=== PATIENT | male | born 1930 | race Caucasian/White ===

== ENCOUNTER 2017-01-24 09:21 | Emergency (ER) | payer OTHER ==
[2017-01-24 09:33] VITALS: PULSE 60; RESP 18
--- NOTE | 2017-01-24 09:44 | CPEKG ---
Heart Rate: 96 RR Interval: 625 P-R Interval: 184 QRSD Interval: 200 QTC Interval: 0 P [place]: 100 QRS [place]: 116 EKG Severity - ABNORMAL ECG - EKG Impression: ATRIAL-VENTRICULAR DUAL-PACED COMPLEXES EKG Impression: NONSPECIFIC INTRAVENTRICULAR CONDUCTION DELAY EKG Impression: BORDERLINE ST DEPRESSION, ANTEROLATERAL LEADS Electronically Signed By: Bhumika Spencer 24-Jan-2017 11:58:11
--- NOTE | 2017-01-24 09:45 | EDPHY ---
H & P Time Seen by Provider: 01/24/17 09:38 HPI/ROS: CHIEF COMPLAINT: Lightheadedness HISTORY OF PRESENT ILLNESS: This patient is an 86 year old man, with a history of hypertension, CAD, and pacemaker placement, presenting with acute lightheadedness, onset this morning while making coffee. [place] lightheaded, sat down felt somewhat better, but the lightheadedness has persisted. No associated sx, no known agrrevating factors. No fall or syncope. He was in his usual state of health yesterday, admits to drinking plenty of water yesterday and having two glasses of wine yesterday evening. He had two previous similar episodes in the last six months, one of which was secondary to accidentally taking to his 's medications. He occasionally has difficulty taking his correct medications -- currently not taking his magnesium supplement and is taking an Excedrin instead of his usual 81mg aspirin. He has not taken his morning medications this morning. REVIEW OF SYSTEMS: Constitutional: No fever, no chills Eyes: No visual changes ENT: No sore throat Respiratory: No cough, no shortness of breath Cardiac: Lightheadedness, near-syncope. No chest pain Gastrointestinal: No nausea, no vomiting, no abdominal pain Genitourinary: No hematuria, no dysuria Musculoskeletal: No leg pain or swelling Skin: No rash Neurological: No headache, no numbness, no weakness Psychiatric: No depression Past Medical/Surgical History: Hypertension, borderline diabetes, coronary artery disease, complete heart block s/p pacemaker placement Social History: Former smoker, , his son is at bedside Smoking Status: Former smoker Physical Exam: General Appearance: Alert, smiling, pleasant Eyes: Pupils equal and round, no conjunctival pallor or injection ENT, Mouth: Mucous membranes moist Neck: Normal inspection Respiratory: Lungs are clear to auscultation Cardiovascular: Regular rate and rhythm Gastrointestinal: Abdomen is soft and non- tender Neurological: A&O, CN II-XII intact, motor/sensory intact Skin: Warm and dry, no rash Extremities: Nontender, no pedal edema Psychiatric: Mood and affect normal Constitutional: Initial Vital Signs Temperature (C) 36.2 C 01/24/17 09:26 Heart Rate 60 01/24/17 09:26 Respiratory Rate 18 01/24/17 09:26 Blood Pressure 178/85 H 01/24/17 09:26 O2 Sat (%) 97 01/24/17 09:26 O2 Delivery Mode Room Air Allergies/Adverse Reactions: No Known Allergies Allergy (Verified 01/24/17 09:25) Home Medications: Medication Instructions Recorded *Waiting For Son To Call Back To 07/19/15 Complete Med Rec Aspirin [Aspirin 81mg (OTC)] 81 mg PO DAILY #30 tab 07/19/15 Clonidine HCl 0.1 mg PO DAILY #0 tablet 07/19/15 Fluvastatin Sodium 20 mg PO DAILY #30 capsule 07/19/15 amLODIPine BESYLATE [Norvasc] 10 mg PO DAILY #30 tab 07/19/15 Plavix 01/24/17 Medical Decision Making - Diagnostics EKG Interpretation: EKG interpreted by me reveals an AV paced rhythm, rate 96. ED Course/Re-evaluation: Patient presents with lightheadedness, onset this morning. History is significant for CAD, HTN, and complete heart block s/p pacemaker placement. An IV has been established. [facility] has been called to interrogate pacemaker. 1140: Pacemaker was interrogated, device functioning normally. No pauses or arrhythmia. Patient is now asymptomatic. He will ambulate in the ED. 1200: Patient was ambulated. Feels a little off, but improved overall. Unable to describe further. HR and BP are normal when ambulating. 1210: I offered patient food/fluids, since he hasn't eaten yet today, and continued observation. However, on re-evaluation, he tells me that he feels better and wants to go home to eat breakfast with his son. I advised the patient to follow up with his PCP this week. Differential Diagnosis: includes though not limited to dysrhythmia, ACS, dehydration, hypoglycemia, CVA/ TIA, vertigo - Data Points Laboratory Results: Laboratory Results 01/24/17 09:50 01/24/17 09:50 Medications Given: Discontinued Medications Sodium Chloride (Ns) 1,000 mls @ 0 mls/hr IV ONCE ONE PRN Reason: Wide Open Stop: 01/24/17 09:52 Last Admin: 01/24/17 10:07 Dose: 1,000 mls Departure - Departure Disposition: Home, Routine, Self-Care Clinical Impression: Lightheadedness Condition: Good Instructions: Lightheadedness (ED) Additional Instructions: Follow up with Dr. Barnard this week. Return to the Emergency Department for fever, chest pain, shortness of breath, syncope, or other worsening of condition. Referrals: Gus Barnard [Primary Care Provider] - As per Instructions Report Scribed for: Bhumika Spencer Report Scribed by: Katja Jorgensen Date of Report: 01/24/17 Time of Report: 09:41 Physician Review and Approval Statement: 01/24/17 09:41 Portions of this note were transcribed by a medical doctor nuclear medicine. I personally performed a history, physical exam, medical decision making, and confirmed accuracy of information the transcribed note.
[2017-01-24] MEDS ORDERED: NS 1,000 ML IV ONE (09:51)
[2017-01-24 09:58] VITALS: TEMP 97.2
[2017-01-24 10:01] LABS: % IMMATURE GRANULYOCYTES 0.6 % (0.0-1.1); ABSOLUTE IMMATURE GRANULOCYTES 0.05 10^3/uL (0.00-0.10); ADD DIFF? NO; ADD MORPH? NO; ADD SCAN? NO; ATYPICAL LYMPHOCYTE FLAG 0 (0-99); FRAGMENT RBC FLAG 0 (0-99); HEMATOCRIT 45.7 % (40.0-51.0); HEMOGLOBIN 15.3 g/dL (13.7-17.5); LEFT SHIFT FLG 0 (0-99); LIPEMIA HEMOLYSIS FLAG 80 (0-99); MEAN CELL HEMOGLOBIN 31.6 pg (27.9-34.1); MEAN CELL HEMOGLOBIN CONCENTR. 33.5 g/dL (32.4-36.7); MEAN CELL VOLUME 94.4 fL (81.5-99.8); PLATELET CLUMPS FLAG 20 (0-99); PLATELET COUNT 288 10^3/uL (150-400); RED BLOOD CELL COUNT 4.84 10^6/uL (4.40-6.38); RED CELL DISTRIBUTION WIDTH 12.4 % (11.5-15.2)
[2017-01-24 10:14] LABS: ANION GAP 14 mEq/L (8-16); CALCIUM 9.2 mg/dL (8.5-10.4); CARBON DIOXIDE 21 mEq/l (22-31); CHLORIDE 102 mEq/L (97-110); CREATININE 0.8 mg/dL (0.7-1.3); GLOMERULAR FILTRATION RATE > 60; GLUCOSE 133 mg/dL (70-100); POTASSIUM 4.4 mEq/L (3.5-5.2); SODIUM 137 mEq/L (134-144)
[2017-01-24 10:26] LABS: TROPONIN I < 0.012 ng/mL (0-0.034)
[2017-01-24 12:02] VITALS: BP 151/77
[2017-01-24 12:03] VITALS: O2SAT 95
== END 2017-01-24 12:14 | disposition home or self-care (01) ==
DX: R42 Dizziness and giddiness (principal); I10 Essential (primary) hypertension; I25.10 Atherosclerotic heart disease of native coronary artery without angina pectoris; Z95.0 Presence of cardiac pacemaker; Z87.891 Personal history of nicotine dependence; Z79.82 Long term (current) use of aspirin

== ENCOUNTER 2018-07-15 20:17 | Inpatient (IN) | payer OTHER, MEDICARE ==
--- NOTE | 2018-07-15 22:08 | EDPHY ---
HPI/HX/ROS/PE/MDM Narrative: CHIEF COMPLAINT: Right eye vision problem HISTORY OF PRESENT ILLNESS: The patient is an anticoagulated (Plavix) 87 y/o male with a history of an DE, CABG, pacemaker, and hypotension complaining of right eye vision problems. The patient was getting out of his car to play golf when his right eye developed a black line that obscured the bottom half of his vision. He denies chest pain, shortness of breath, dizziness or lightheadedness. However, the last several times he was golfing he did feel dizzy and unstable, but he did not experience this today. Because of this dizziness his called the pacemaker patient registration representative 2 weeks ago who did not see any abnormalities with the patient's pacemaker. At it's worst, his vision was 40% obscured. The patient played golf and his vision continued to improve for the next 4 hours. After golfing, he called his cementer oil well and was advised to follow up with a retinal specialist. He saw Dr. No who determined that a blood clot had passed through his right retina. She thought this was a piece of a larger blood clot. The patient left Dr. No's office at 17:00, 5 hours ago; at this time the vision problem had resolved. After returning home he called his pig sticker who advised the patient to present to the emergency department. He denies numbness or tingling in his arms, legs or face, weakness, speech difficulties. Denies history of DVT, PE, atrial fibrillation. No fever, chills, chest pain, shortness of breath, palpitations, vomiting, diarrhea, urinary complaints, headache, lightheadedness. REVIEW OF SYSTEMS: Aside from elements discussed in the HPI, a comprehensive 10 system review of systems was reviewed and is negative. PAST MEDICAL HISTORY: DE, CABG, pacemaker, and hypotension SOCIAL HISTORY: at bedside, lives in [place], retired VITAL SIGNS: Reviewed by me GENERAL: Well-developed, well-nourished, resting comfortably in no respiratory distress. HEENT: Atraumatic. Eyes: No icterus, no injection. Mouth: moist mucous membranes. No erythema or lesions. Neck: supple with no adenopathy. LUNGS: Clear to auscultation bilaterally, no wheezes, rhonchi or rales. CARDIAC: Regular rate and rhythm, no rubs, murmurs or gallops. ABDOMEN: Soft, nontender, nondistended, bowel sounds normal. BACK: No CVA tenderness. EXTREMITIES: No trauma. No edema. Range of motion is normal throughout. NEURO: Alert and oriented, cranial nerves II through XII are intact. Diminished property management specialist strength on the right, mild pronator drift on the right. Sensation intact to light touch. SKIN: Warm and dry, no rash. PSYCHIATRIC: Normal mentation, no agitation. Portions of this note were transcribed by a forensic medical examiner. I personally performed a history, physical exam, medical decision making, and confirmed accuracy of information the transcribed note. ED Course: The patient is an anticoagulated (Plavix) 87 y/o male with a history of an DE, CABG, pacemaker, and hypotension presenting with a right eye vision problem. After the vision problem developed, the patient saw Dr. Machuca, a retinal specialist, who told the patient that a blood clot passed through his right retina. Dr. No was concerned that the retinal clot came from a larger blood clot. Due to these findings the patient decided to present to the emergency department today. The patient is no longer having the vision problems. On exam he has diminished property management specialist strength on the right and mild pronator drift on the right. He denies feeling weak on his right side. Labs, EKG , chest x-ray, and head CT ordered. Due to the patient's symptoms I have discussed admitting him, which he is comfortable with. 223: 12-LEAD EKG: Please see the full report in [facility]. My interpretation: Atrial-ventricular dual-paced complexes with a rate of 60. 2258: I consulted with the hospitalist service, Dr. Liu accepts admission of this patient. Head and neck CTA ordered. 220: I spoke with Dr. Iraheta, radiologist, who reports that their are not acute findings on the patient's head CT. CT angiogram of the neck does demonstrate skin calcified plaque with moderate stenosis of the right internal carotid just at the bifurcation. Given the patient's right eye symptoms this may be the source of the emboli. MDM: Differential diagnoses the patient's presenting complaints was considered including but not limited to intracranial injury, TIA, ischemic cerebrovascular accident, hemorrhagic cerebrovascular accident, hypoglycemia, complex migraine , metastases, tumor, seizure, or electrolyte abnormality - Data Points Imaging Results: Imaging Impressions Chest X-Ray 07/15/18 22:22 Impression: Prior cardiac interventions; no acute cardiopulmonary abnormality.. Head CT 07/15/18 22:22 Impression: Stable negative noncontrast CT of the brain. Underlying atrophy. Results called to Dr. Darby Henry at 11:15 PM at the time of the interpretation. Imaging: Discussed imaging studies w/ secondary special education teacher Radiologist, I viewed and interpreted images myself Laboratory Results: Laboratory Results 07/15/18 20:53 07/15/18 20:53 07/15/18 07/15/18 07/15/18 22:43 21:53 20:53 WBC RBC Hgb Hct MCV MCH MCHC RDW Plt Count MPV Neut % (Auto) Lymph % (Auto) [place] % (Auto) Eos % (Auto) Baso % (Auto) Nucleat RBC Rel Count Absolute Neuts (auto) Absolute Lymphs (auto) Absolute Monos (auto) Absolute Eos (auto) Absolute Basos (auto) Absolute Nucleated RBC Immature Gran % Immature Gran # PT 13.8 SEC SEC (12.0-15.0) INR 1.04 (0.83-1.16) Sodium 138 mEq/L mEq/L (135-145) Potassium 4.3 mEq/L mEq/L (3.3-5.0) Chloride 101 mEq/L mEq/L (97-110) Carbon Dioxide 24 mEq/l mEq/l (22-31) Anion Gap 13 mEq/L mEq/L (8-16) BUN 23 mg/dL mg/dL (7-23) Creatinine 1.2 mg/dL mg/dL (0.7-1.3) Estimated GFR 57 Glucose 123 mg/dL H mg/dL (70-100) Calcium 9.2 mg/dL mg/dL (8.5-10.4) POC Troponin I 0.02 ng/mL ng/mL (0.00-0.08) 07/15/18 20:53 WBC 8.93 10^3/uL 10^3/uL (3.80-9.50) RBC 4.64 10^6/uL 10^6/uL (4.40-6.38) Hgb 14.5 g/dL g/dL (13.7-17.5) Hct 42.9 % % (40.0-51.0) MCV 92.5 fL fL (81.5-99.8) MCH 31.3 pg pg (27.9-34.1) MCHC 33.8 g/dL g/dL (32.4-36.7) RDW 12.5 % % (11.5-15.2) Plt Count 358 10^3/uL 10^3/uL (150-400) MPV 8.8 fL fL (8.7-11.7) Neut % (Auto) 50.0 % % (39.3-74.2) Lymph % (Auto) 34.7 % % (15.0-45.0) Garden % (Auto) 12.0 % % (4.5-13.0) Eos % (Auto) 2.4 % % (0.6-7.6) Baso % (Auto) 0.6 % % (0.3-1.7) Nucleat RBC Rel Count 0.0 % % (0.0-0.2) Absolute Neuts (auto) 4.47 10^3/uL 10^3/uL (1.70-6.50) Absolute Lymphs (auto) 3.10 10^3/uL H 10^3/uL (1.00-3.00) Absolute Monos (auto) 1.07 10^3/uL H 10^3/uL (0.30-0.80) Absolute Eos (auto) 0.21 10^3/uL 10^3/uL (0.03-0.40) Absolute Basos (auto) 0.05 10^3/uL 10^3/uL (0.02-0.10) Absolute Nucleated RBC 0.00 10^3/uL 10^3/uL (0-0.01) Immature Gran % 0.3 % % (0.0-1.1) Immature Gran # 0.03 10^3/uL 10^3/uL (0.00-0.10) PT INR Sodium Potassium Chloride Carbon Dioxide Anion Gap BUN Creatinine Estimated GFR Glucose Calcium POC Troponin I Point of Care Test Results: Chemistry 07/15/18 22:43 POC Troponin I 0.02 ng/mL ng/mL (0.00-0.08) General Time Seen by Provider: 07/15/18 21:43 Initial Vital Signs: Initial Vital Signs Temperature (C) 36.5 C 07/15/18 20:23 Heart Rate 68 07/15/18 20:23 Respiratory Rate 16 07/15/18 20:23 Blood Pressure 146/73 H 07/15/18 20:23 O2 Sat (%) 94 07/15/18 20:23 O2 Delivery Mode Room Air Allergies/Adverse Reactions: No Known Allergies Allergy (Verified 01/24/17 09:25) Home Medications: Medication Instructions Recorded *Waiting For Son To Call Back To 07/19/15 Complete Med Rec Aspirin [Aspirin 81mg (OTC)] 81 mg PO DAILY #30 tab 07/19/15 Fluvastatin Sodium 20 mg PO DAILY #30 capsule 07/19/15 amLODIPine BESYLATE [Norvasc] 10 mg PO DAILY #30 tab 07/19/15 cloNIDine HCL [Clonidine HCl] 0.1 mg PO DAILY #0 tablet 07/19/15 Plavix 01/24/17 Amlodipine Besylate 07/15/18 Clopidogrel 07/15/18 Departure - Departure Disposition: [facility] Acute Clinical Impression: rule out stroke, Right retinal embolus, Right sided weakness, TIA (transient ischemic attack), Amaurosis fugax of right eye Condition: Fair Report Scribed for: Darby Henry Report Scribed by: Ashley Laird Date of Report: 07/15/18 Time of Report: 22:08
[2018-07-15 22:36] LABS: PLATELET COUNT 358 10^3/uL (150-400)
[2018-07-15 22:46] LABS: INR 1.04 (0.83-1.16); PROTIME(PATIENT) 13.8 SEC (12.0-15.0)
[2018-07-15] MEDS ORDERED: ONDANSETRON 4 MG/2 ML VIAL IVP PRN (23:04)
[2018-07-15] MEDS ORDERED: ACETAMINOPHEN 325 MG TAB PO PRN (23:04)
[2018-07-15] MEDS ORDERED: ONDANSETRON DISINTEGRATING 4 MG TAB PO PRN (23:04)
[2018-07-15] MEDS ORDERED: IOPAMIDOL (ISOVUE 370) 100 ML BTL IV ONE (23:07)
--- NOTE | 2018-07-16 00:05 | CPEKG ---
Test Reason : OPEN Blood Pressure : / mmHG Vent. Rate : 060 BPM Atrial Rate : 000 BPM P-R Int : 211 ms QRS Dur : 179 ms QT Int : 487 ms P-R-T Axes : 124 -70 105 degrees QTc Int : 487 ms Atrial-ventricular dual-paced complexes Confirmed by Darby Henry ([id number]) on 07/16/2018 12:04:32 AM Referred By: Confirmed By:Darby Henry
--- NOTE | 2018-07-16 00:30 | PDGENHP ---
History and Physical - Chief Complaint Vision loss - History of Present Illness 87 yo M w/ hx of CAD s/p CABG, HTN, CHB s/p PPM, and HTN presents after loss of vision in his R eye. Today around 4 PM after playing golf he developed sudden loss of vision in his R eye. He describes this as a black curtain moving up his vision field and obscuring about 40% of his vision. This resolved over the next couple of hours. They went to see Dr. Wiley, an tow mate, who recommended (along with his survey superintendent), that he come to the hospital for further testing. At the time of my evaluation patient is without complaint. Case discussed with ED physician Dr. Henry, records reviewed in EMR. History Information - Allergies/Home Medication List Allergies/Adverse Reactions: No Known Allergies Allergy (Verified 01/24/17 09:25) Home Medications: *Waiting For Son To Call Back To Complete Med Rec 07/19/15 [Last Taken Unknown] Plavix 01/24/17 [Last Taken Unknown] Amlodipine Besylate 07/15/18 [Last Taken Unknown] Clopidogrel 07/15/18 [Last Taken Unknown] I have personally reviewed and updated: family history, medical history - Past Medical History coronary artery disease, hypertension - Surgical History Reports: coronary bypass surgery, pacemaker/AICD - Family History Additional family history: CAD, HTN - Social History Smoking Status: Former smoker Review of Systems Review of Systems: ROS: 10pt was reviewed & negative except for what was stated in HPI & below Physical Exam Physical Exam: Temp Pulse Resp BP Pulse Ox 36.5 C 62 16 139/74 H 97 07/15/18 20:23 07/15/18 23:47 07/15/18 23:47 07/15/18 23:47 07/15/18 23:47 Constitutional: no apparent distress, not in pain Eyes: PERRL, EOMI Ears, Nose, Mouth, Throat: moist mucous membranes, no oral mucosal ulcers Cardiovascular: regular rate and rhythym, systolic murmur Respiratory: no respiratory distress, clear to auscultation Gastrointestinal: normoactive bowel sounds, soft, non-tender abdomen Skin: warm, normal color Musculoskeletal: full muscle strength, no muscle tenderness Neurologic: AAOx3, CN II-XII Intact Psychiatric: interacting appropriately, not anxious Lab Data & Imaging Review 07/15/18 20:53 07/15/18 20:53 WBC 8.93 10^3/uL (3.80-9.50) 07/15/18 20:53 RBC 4.64 10^6/uL (4.40-6.38) 07/15/18 20:53 Hgb 14.5 g/dL (13.7-17.5) 07/15/18 20:53 Hct 42.9 % (40.0-51.0) 07/15/18 20:53 MCV 92.5 fL (81.5-99.8) 07/15/18 20:53 MCH 31.3 pg (27.9-34.1) 07/15/18 20:53 MCHC 33.8 g/dL (32.4-36.7) 07/15/18 20:53 RDW 12.5 % (11.5-15.2) 07/15/18 20:53 Plt Count 358 10^3/uL (150-400) 07/15/18 20:53 MPV 8.8 fL (8.7-11.7) 07/15/18 20:53 Neut % (Auto) 50.0 % (39.3-74.2) 07/15/18 20:53 Lymph % (Auto) 34.7 % (15.0-45.0) 07/15/18 20:53 [place] % (Auto) 12.0 % (4.5-13.0) 07/15/18 20:53 Eos % (Auto) 2.4 % (0.6-7.6) 07/15/18 20:53 Baso % (Auto) 0.6 % (0.3-1.7) 07/15/18 20:53 Nucleat RBC Rel Count 0.0 % (0.0-0.2) 07/15/18 20:53 Absolute Neuts (auto) 4.47 10^3/uL (1.70-6.50) 07/15/18 20:53 Absolute Lymphs (auto) 3.10 10^3/uL (1.00-3.00) H 07/15/18 20:53 Absolute Monos (auto) 1.07 10^3/uL (0.30-0.80) H 07/15/18 20:53 Absolute Eos (auto) 0.21 10^3/uL (0.03-0.40) 07/15/18 20:53 Absolute Basos (auto) 0.05 10^3/uL (0.02-0.10) 07/15/18 20:53 Absolute Nucleated RBC 0.00 10^3/uL (0-0.01) 07/15/18 20:53 Immature Gran % 0.3 % (0.0-1.1) 07/15/18 20:53 Immature Gran # 0.03 10^3/uL (0.00-0.10) 07/15/18 20:53 PT 13.8 SEC (12.0-15.0) 07/15/18 21:53 INR 1.04 (0.83-1.16) 07/15/18 21:53 Sodium 138 mEq/L (135-145) 07/15/18 20:53 Potassium 4.3 mEq/L (3.3-5.0) 07/15/18 20:53 Chloride 101 mEq/L (97-110) 07/15/18 20:53 Carbon Dioxide 24 mEq/l (22-31) 07/15/18 20:53 Anion Gap 13 mEq/L (8-16) 07/15/18 20:53 BUN 23 mg/dL (7-23) 07/15/18 20:53 Creatinine 1.2 mg/dL (0.7-1.3) 07/15/18 20:53 Estimated GFR 57 07/15/18 20:53 Glucose 123 mg/dL (70-100) H 07/15/18 20:53 Calcium 9.2 mg/dL (8.5-10.4) 07/15/18 20:53 POC Troponin I 0.02 ng/mL (0.00-0.08) 07/15/18 22:43 Imaging Review: Imaging Impressions Chest X-Ray 07/15/18 22:22 Impression: Prior cardiac interventions; no acute cardiopulmonary abnormality.. Head CT 07/15/18 22:22 Impression: Stable negative noncontrast CT of the brain. Underlying atrophy. Results called to Dr. Darby Henry at 11:15 PM at the time of the interpretation. Head CTA 07/15/18 23:03 Impression: 1. Densely calcified plaque at the right carotid bifurcation, with 70 % origin stenosis of the right internal carotid artery. 2. 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 Results called to Dr. Henry at 11:45 AM. Note: All stenoses are calculated using NASCET Criteria. Neck CTA 07/15/18 23:03 Impression: Calcified plaque within the distal internal carotid arteries bilaterally, without evidence of flow-limiting stenosis or aneurysm. Results called to Dr. Henry at 11:45 PM.. Visualized and Interpreted EKG results: Yes EKG Interpretation: Positive for: other (V-paced rhythm) Assessment & Plan Assessment: 87 yo M w/ hx of CAD, HTN, and CHB s/p PPM presents with transient, partial vision loss of his R eye. Plan: 1. Transient monocular vision loss - With partial loss of R visual field that resolved over a few hours. Presentation is suspicious for vascular etiology noting multiple risk factors and age. Patient is being admitted essentially for TIA work-up. He is without complaint at the time of admission. - CTA Head/Neck notable for significant disease in carotid and vertebral arteries - CTH without acute findings - A1c, lipid panel with morning labs - PT/OT/MARBLE [facility]ON evaluations - TTE for cardiac evaluation - Monitor on telemetry - Neurology consult placed - Patient already of ASA, Plavix, statin as outpatient 2. Hx CAD - S/p CABG, denies chest pain at this time. ECG w/ V-paced rhythm. - Continue home medications pending reconciliation 3. CHB - S/p pacemaker placement 4. HTN - Continue home medications pending reconciliation Diet - Regular pending RN swallow screen Code - Full Ppx - SCDs Dispo - Admit under observation status
[2018-07-16 05:36] LABS: PLATELET COUNT 301 10^3/uL (150-400)
[2018-07-16] MEDS: PRAVASTATIN SODIUM 20 MG TAB PO SCH (12:25)
[2018-07-16] MEDS ORDERED: HEPARIN 10,000 UNIT/10 ML MDV (1,000 UNIT/ML) IVP PRN (12:39)
--- NOTE | 2018-07-16 13:03 | HOSPPROG ---
Hospitalist Progress Note Assessment/Plan: 87 yo M w/ hx of CAD, HTN, and CHB s/p PPM presents with transient, partial vision loss of his R eye. Today is my first encounter w the patient, chart reviewed. Evaluated the patient alongside with Dr Mendiola. I have reviewed his imaging. spoke w Dr Galan who will see Ady tomorrow, spoke with Dr Cervantes and he will see him in addition. 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 Objective: Vital Signs Temp Pulse Resp BP Pulse Ox 36.6 C 63 19 161/87 H 96 07/16/18 11:36 07/16/18 11:36 07/16/18 11:36 07/16/18 11:36 07/16/18 11:36 Laboratory Results 07/16/18 05:03 07/16/18 05:03 07/15/18 07/16/18 07/17/18 05:59 05:59 05:59 Intake Total 250 Balance 250 PT 13.8 SEC (12.0-15.0) 07/15/18 21:53 INR 1.04 (0.83-1.16) 07/15/18 21:53 - Physical Exam Constitutional: no apparent distress, appears nourished, not in pain Eyes: EOMI Ears, Nose, Mouth, Throat: hearing normal Cardiovascular: regular rate and rhythym Respiratory: no respiratory distress Gastrointestinal: normoactive bowel sounds Skin: warm Musculoskeletal: generalized weakness Neurologic: AAOx3, sensation intact bilaterally, CN II-XII Intact, No numbness, No pronator drift, No facial droop Psychiatric: interacting appropriately, poor memory ICD10 Worksheet Patient Problems: Problems Problem Status Onset Amaurosis fugax of right eye Acute Right retinal embolus Acute Right sided weakness Acute TIA (transient ischemic attack) Acute CAD (coronary artery disease) of artery bypass graft Acute Cardiac pacemaker in situ Acute Heart block AV complete Acute
[2018-07-16 13:28] LABS: PLATELET COUNT 326 10^3/uL (150-400)
[2018-07-16 13:37] LABS: INR 1.02 (0.83-1.16); PROTIME(PATIENT) 13.6 SEC (12.0-15.0)
--- NOTE | 2018-07-16 13:53 | GCON ---
NEUROLOGY CONSULTATION REFERRING PHYSICIAN: Costa Romero MD CHIEF COMPLAINT: Right-sided amaurosis fugax. HISTORY OF PRESENT ILLNESS: The patient is a very pleasant 87-year-old gentleman whom I know very well as I see him as an outpatient for cognitive impairment. We treat him with Aricept for this. He also has a vascular history with coronary artery disease and is on Plavix and aspirin therapy. Yesterday, he had sudden right monocular vision changes as if a shade was being pulled from the bottom of his visual field up. He initially ignored this and/ or refused to get treatment and went and played golf, but afterwards as the vision problem did not change, his daughter talked him into seeing an piano regulator inspector. He did see a retina specialist, who examined him and found that he likely had an embolism to his retina and sent him to the ED. He came in and was hospitalized. 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 He has been having some irregular heartbeats here on monitor. He had CT of the head and CT of the head and neck. CT of the head showed no acute findings. CTA of the neck showed some calcified plaque without flow-limiting stenosis, and CTA head showed a densely calcified plaque at the right carotid bifurcation with 70% stenosis of the right internal carotid artery. In addition, he had 90% stenosis of the left vertebral artery at the origin of the subclavian artery. This is something that the patient has known about for some time and has seen a neurovascular specialist in [place], and antiplatelet therapy was recommended for the vertebral stenosis. The right monocular vision loss has improved, but he still has a tiny area of scotoma in the inferior portion. For past medical history, social history, family history, medication and allergies, see Dr. Romero's note. REVIEW OF SYSTEMS: A review of systems was done. A 10-point review was only pertinent to the HPI. PHYSICAL EXAM: VITAL SIGNS: Blood pressure is 150/73, afebrile, respirations 18. GENERAL: He is very pleasant, awake and alert. He does have some cognitive impairment. No aphasia. NEUROLOGIC: On cranial nerve exam, when I occluded his left eye, he reported a small scotoma in his right monocular field in the inferior portion. Otherwise, cranial nerve exam was normal. Motor exam showed no focal weakness or sensory loss. IMPRESSION/PLAN: 1. Amaurosis fugax in the right. 2. Right internal carotid artery stenosis, 70%. 3. 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 4. Vertebral artery stenosis, 90% Overall, the patient's clinical history is consistent with a small embolism from his right internal carotid artery plaque embolizing to his right eye with some infarct as he has some residual deficit. Based on his very high functional status, I think he would be a candidate for surgical consideration. Discussed at length with the patient, his daughter, and the primary hospitalist team. We contacted General Surgery, and we will discontinue antiplatelets and put him on an IV heparin drip, and he will see Surgery today and Dr. Navarro on Wednesday to consider endarterectomy. We also noticed some irregularities on his paced rhythm. Certainly, we want to exclude atrial fibrillation, although that would not be directly implicated in today's event most likely. If he does have atrial fibrillation, then consideration for oral anticoagulation could be made after he has had surgery and he is cleared by the surgeon to start oral anticoagulation. No further recommendations now. We will continue to follow the patient as needed in the hospital. Please do not hesitate to call if there are any questions or changes in neurologic status for this very pleasant patient. In regards to his vertebral artery stenosis, he should be on antiplatelet medication or anticoagulants (as outlined above) for this condition. He has seen a interventional neurovascular specialist in [place] (per report from his daughter, Nikki) who told him treatment would antiplatelet medication is the treatment rather than stenting etc. We certainly could refer him back downline to reconsider if the patient and his family wishes. seventy total minutes floor time reviewing outpatient records, inpatient imaging and records, direct counseling with the patient and his family, and coordination of care. /[id number]/MODL MTDD
[2018-07-16] MEDS: DONEPEZIL HCL 5 MG TAB PO SCH (14:03)
--- NOTE | 2018-07-16 14:36 | PDMN ---
Medical Necessity Medical necessity: [facility] Head and Neck Disease: 87 y/o w/ loss of vision R eye, retinal infarct w/ vision loss still ongoing, 90% stenosis left vertebral artery poss stent needed, needs pacer interrogated, some arrhythmias noted, 70% stenosis of ANJELICA, place on heparin gtt urgently, surgical and neuro consults, considering endarterectomy, pt wll require another [place] stay for further eval, switch to IP status per MD order as of 07/16/18 @ 1316. Hx CAD s/p CABH, HRN, CHB s/p PPM and HTN
[2018-07-16] MEDS: HEPARIN/DEXTROSE 500 ML IV SCH (14:49)
--- NOTE | 2018-07-16 15:14 | ASMTCMCOM ---
CM Note CM Note Notes: Pt in for TIA after loss of vision which has resolved. Neurology consulting. Pt resides at [facility], has family support. 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 Spoke with pt and family about [facility], they want to think about it. CM to follow. D/c plan of care: return to [place] maybe with [facility] FINISHED [employer] Date Signed: 07/16/2018 03:13 PM Electronically Signed By:DEREK Gibbs
--- NOTE | 2018-07-16 15:50 | ASMTLACE ---
CLEO Acuity / Level of Answers: Yes Care: Did the patient have an inpatient admission? Comorbidities - select Answers: Cerebrovascular disease all that apply (CVA, TIA, aneurysms, vasc ular dementia) Coronary Artery Disease # of Emergency department Answers: 1-2 visits in the last 6 months Score: 7 Date Signed: 07/16/2018 03:49 PM Electronically Signed By:DEREK Gibbs
--- NOTE | 2018-07-16 16:08 | ECHO ---
[email or web address] [address] Main: [phone] Fax: Transthoracic Echocardiogram Name: DOLORES STRATTON MR#: [id number] Study Date: 07/16/2018 Study Time: 02:15 PM Date of : 1930 Age: 87 year(s) Height: 180.3 cm (71 in.) Weight: 79.38 kg (175 lb.) BSA: 1.99 m2 Gender: Male Examination: Echo Indication: Near Syncope, Hx of CABG, Heart Block, Pacemaker Image Quality: Contrast: Requested by: Costa Licea BP: 161 mmHg/87 mmHg Heart Rate: Rhythm: Indication: Near Syncope, Hx of CABG, Heart Block, Pacemaker Procedure Staff Swage Tender: Bharat Brown RDCS Reading Physician: Christiano Ballard MD Requesting Provider: Conclusions: Mild concentric LV hypertrophy. Normal global systolic LV function. There is paradoxic septal motion suggestive of bundle branch block, paced cardiac rhythm, or prior cardiac surgery. Mild aortic valve regurgitation is present. Mild tricuspid regurgitation is present. Based on mild tricuspid regurgitation, a repeat echo may be considered in 3 years unless there is a change in clinical status. Measurements: Chambers Valvular Assessment AV/MV Valvular Assessment TV/PV Normal Normal Normal Name Value Range Name Value Range Name Value Range Ao Lacey (MM): 3.4 cm (2.2 cm-3.7 AV Vmax: 1.75 m/s (1 m/s-1.7 TR Vmax: 2.90 mm/s ( - ) cm) m/s) TR PGmax: 34 mmHg ( - ) IVSd (2D): 1.2 cm (0.6 cm-1.1 AV maxP mmHg ( - ) syst. PAP: 39 mmHg ( - ) cm) LVOT Vmax: 0.78 m/s (0.7 m/s-1.1 PV Vmax: 1.07 m/s (0.6 m/s-0.9 LVDd (2D): 4.7 cm (4.2 cm-5.9 m/s) m/s) cm) MV E Vmax: 0.54 m/s ( - ) PV PGmax: 5 mmHg ( - ) LVDs (2D): 2.8 cm (2.1 cm-4 MV A Vmax: 0.66 m/s ( - ) cm) MV E/A: 0.82 ( - ) LVPWd (2D): 1.4 cm (0.6 cm-1 cm) LVEF (2D): 71 (>=54 %) Continued Measurements: Valvular Assessment AV/MV Valvular Assessment TV/PV Name Value Name Value Patient: DOLORES SRTATTON Study Date: 07/16/2018 Page 1 of 2 02:15 PM MV E' Septal: 0.05 m/s CVP (est.): 5 mmHg MV E/E' Septal: 10.10 MV E/E' Lateral: 6.20 Findings: Left Ventricle: Normal size left ventricle. Mild concentric LV hypertrophy. Normal global systolic LV function. EF is 71 %. There is paradoxic septal motion suggestive of bundle branch block, paced cardiac rhythm, or prior cardiac surgery. Right Ventricle: Normal size right ventricle. Normal RV function. Left Atrium: The left atrium is normal in size. Right Atrium: The right atrium is normal in size. Mitral Valve: The mitral valve is normal in appearance and function. Aortic Valve: Mild aortic cusp calcification is noted. Mild aortic valve regurgitation is present. Tricuspid Valve: The tricuspid valve appears normal. Mild tricuspid regurgitation is present. The pulmonary artery pressure is mildly increased. Pulmonic Valve: The pulmonic valve is normal in appearance and function. Aorta: The aorta is normal. Pericardium: No pericardial effusion. There is pericardial fat. (No Signature Object) Patient: DOLORES STRATTON Study Date: 07/16/2018 Page 2 of 2 02:15 PM [id number]
[2018-07-16] MEDS ORDERED: CLOPIDOGREL BISULFATE 75 MG TAB PO SCH (21:00)
[2018-07-17] MEDS: CYANO/VITAMIN B12 1000 MCG TAB PO SCH (08:46)
[2018-07-17] MEDS: PRAVASTATIN SODIUM 20 MG TAB PO SCH (08:47)
[2018-07-17] MEDS: CHOLECALCIFEROL VIT D3 1,000 UNITS TAB PO SCH (08:47)
[2018-07-17] MEDS: PRESERVISION AREDS2 FORMULA EYE VIT 1 EACH PO SCH (08:47)
[2018-07-17] MEDS: DONEPEZIL HCL 5 MG TAB PO SCH (08:47)
[2018-07-17] MEDS ORDERED: ASPIRIN 81 MG CHEWABLE TAB PO SCH (09:00)
[2018-07-17] MEDS ORDERED: DONEPEZIL HCL 5 MG TAB PO SCH (09:00)
[2018-07-17] MEDS ORDERED: Herbals/Supplements -Info Only PO SCH (09:00)
--- NOTE | 2018-07-17 09:48 | HOSPPROG ---
Hospitalist Progress Note Assessment/Plan: 87 yo M w/ hx of CAD, HTN, and CHB s/p PPM presents with transient, partial vision loss of his R eye. Evaluated the patient alongside with Dr Mendiola. I have reviewed his imaging. 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, right eye amaurosis fugax -partial loss right visual field -still ongoing -patient has a 70% stenosis of ANJELICA-place on heparin gtt now -Dr Navarro to see tomorrow -appreciate Dr Galan seeing Ady today -hold asa and Plavix for poss surgery *carotid stenosis -70% stenosis on r side, will likely need a CEA -90 percent stenosis of left vertebral artery -has had this evaluated in the past-recommendation is anti-platelet therapy *CHB s/p pacer -will get pacer interrogated to r/o any atrial fibrillation, spoke w Dr Cervantes, patient has hx of atrial tachycardia -evaluated telemetry and he is in a V paced rhythm *CAD -s/p CABG -appreciate Dr Cervantes seeing Ady *htn -on clonidine *dementia -resumed home meds *plan: continue current care, appreciate all the specialities seeing Ady Subjective: Ady has no complaints. Objective: Vital Signs Temp Pulse Resp BP Pulse Ox 36.7 C 61 16 135/75 H 95 07/17/18 07:48 07/17/18 07:48 07/17/18 07:48 07/17/18 08:47 07/17/18 07:48 07/16/18 07/17/18 07/18/18 05:59 05:59 05:59 Intake Total 1000 Balance 1000 PT 13.6 SEC (12.0-15.0) 07/16/18 13:16 INR 1.02 (0.83-1.16) 07/16/18 13:16 - Physical Exam Constitutional: no apparent distress, appears nourished, not in pain Ears, Nose, Mouth, Throat: hard of hearing Cardiovascular: regular rate and rhythym Respiratory: no respiratory distress Genitourinary: no bladder fullness Skin: warm Musculoskeletal: full muscle strength Psychiatric: interacting appropriately ICD10 Worksheet Patient Problems: Problems Problem Status Onset Amaurosis fugax of right eye Acute Right retinal embolus Acute Right sided weakness Acute TIA (transient ischemic attack) Acute CAD (coronary artery disease) of artery bypass graft Acute Cardiac pacemaker in situ Acute Heart block AV complete Acute
--- NOTE | 2018-07-17 10:17 | SOAPPROG ---
SOAP Progress Note Assessment/Plan: Assessment: 87 yo with R amarosis fugax and CTA with 70% stenosis On Heparin Drip Dr. Navarro will see and evaluate in the am Plan: 07/17/18 10:16 Objective: Vital Signs Temp Pulse Resp BP Pulse Ox 36.7 C 61 16 135/75 H 95 07/17/18 07:48 07/17/18 07:48 07/17/18 07:48 07/17/18 08:47 07/17/18 07:48 07/16/18 07/17/18 07/18/18 05:59 05:59 05:59 Intake Total 1000 Balance 1000 PT 13.6 SEC (12.0-15.0) 07/16/18 13:16 INR 1.02 (0.83-1.16) 07/16/18 13:16 ICD10 Worksheet Patient Problems: Problems Problem Status Onset Amaurosis fugax of right eye Acute Right retinal embolus Acute Right sided weakness Acute TIA (transient ischemic attack) Acute CAD (coronary artery disease) of artery bypass graft Acute Cardiac pacemaker in situ Acute Heart block AV complete Acute
--- NOTE | 2018-07-17 11:42 | GCON ---
DATE OF CONSULTATION: 07/17/2018 CHIEF COMPLAINT: We have been asked by Angela West to evaluate the patient with amaurosis fugax and an accelerated heart rate seen on telemetry monitoring. HISTORY OF PRESENT ILLNESS: The patient is an 87-year-old gentleman with history of coronary artery disease, hypertension, sick sinus syndrome, and short-term memory loss, who presented to the hospital on 07/15/2018, with sudden loss of vision in his right eye. The patient was in his usual state of h ealth until the day of admission, when he noted the abrupt onset of a black curtain moving in front o f his visual field obstructing approximately 40% of his vision. The patient proceeded to play a roun d of golf without difficulty and then presented to his preflight mechanic, who recommended he present to the emergency department for further evaluation. In the emergency department, the patient was diagn osed with amaurosis fugax and found to have a 70% stenosis of his right internal carotid artery. The patient was started on heparin and admitted to the hospital for further evaluation and management. On telemetry, the patient was noted to have an accelerated heart rate for a short period of time. We have been consulted to help in the further management of this patient. The patient does have a prev ious history of coronary artery disease. His presenting symptom was profound fatigue and dyspnea. Dunia mathew was treated with CABG in 2001. His last cardiovascular evaluation in September of 2015 demonstrated no evidence of ischemia or infarction and preserved left ventricular systolic function. The patient remains moderately active golfing and walking approximately 1-2 miles several days a week. The holly ent denies symptoms of angina with this activity. The patient also has a history of sick sinus syndr ome and is status post pacemaker placement. His last pacemaker check on June 27, 2018, demonstrate d sinus rhythm with several runs of atrial tachycardia. PAST MEDICAL HISTORY: 1. Coronary artery disease. 2. Sick sinus syndrome. 3. Hypertension. 4. Hyperlipidemia. 5. History of TIA. 6. Short-term memory loss. MEDICATIONS: Please see medicine reconciliation form. SOCIAL HISTORY: The patient lives with his . He does not smoke. He does consume alcohol. FAMILY HISTORY: Noncontributory. REVIEW OF SYSTEMS: A 10-point review of systems is negative, except as noted in HPI. PHYSICAL EXAMINATION: GENERAL: The patient is resting comfortably in bed. He does not appear to be in acute distress. VITAL SIGNS: Temperature is afebrile. Pulse is 61, blood pressure is 135/75, r espiratory rate is 16. SaO2 is 95% on room air. HEENT: Normocephalic, atraumatic. Extraocular mus cles intact. NECK: No JVD. No bruits auscultated. LUNGS: Clear to auscultation bilaterally. CAR DIOVASCULAR: Regular rate and rhythm. S1, paradoxically split S2. No murmurs, rubs, or gallops elham reciated. ABDOMEN: Soft, nontender. Normoactive bowel sounds. No hepatosplenomegaly noted. EXTRE MITIES: No clubbing, cyanosis, or edema. NEURO: The patient is awake, alert, and oriented x3. He does have significant short-term memory loss as well as a visual field defect. LABORATORY: Sodium 140, potassium 4.0, chloride 106, CO2 25, BUN 20, creatinine 0.9. LDL cholestero l is 93. White blood cell count 6.58, hemoglobin is 14.9, hematocrit is 43.7, platelet count is 326. EKG demonstrates a paced rhythm. Telemetry monitoring: No alarms identified. ASSESSMENT AND PLAN: The patient is an 87-year-old gentleman with: 1. Amaurosis fugax. The patient presents with the abrupt onset of a right-sided visual defect consi stent with amaurosis fugax. His CTA of head and neck is notable for a 70% stenosis involving his rig ht carotid artery. This is likely the explanation for his symptoms. He is anticipating carotid enda rterectomy in the near future. He is currently anticoagulated with aspirin, Plavix and heparin. 2. Coronary artery disease. The patient has known coronary artery disease and is status post bypass grafting surgery in 2001. He remains moderately active and denies symptoms of angina. His last car diovascular evaluation in September of 2015 demonstrated no evidence of ischemia or infarction and pre served left ventricular systolic function. We will plan on continuing medical management with aspiri n, Plavix, and pravastatin. Consider addition of beta-jasmine therapy. 3. Sick sinus syndrome. The patient has a history of sick sinus syndrome. He is status post pacema ker placement in 2014. His last pacemaker evaluation on 06/27/2018, demonstrated normal function wit h several short runs of atrial tachycardia. No atrial fibrillation was identified. Given his recent event, will interrogate his pacemaker looking for occult atrial fibrillation. However, this is an un likely explanation for his amaurosis fugax given the carotid artery stenosis. However, would warrant long-term anticoagulation discussion. 4. Hypertension. Blood pressure is well controlled. Would continue current therapy. 5. Hyperlipidemia. The patient's LDL cholesterol is 93. His goal would be less than 70. Would inc rease pravastatin to 40 mg daily. 6. Palpitations. The patient was noted to have a rapid heart rate on telemetry monitoring by observ ers. Review of telemetry monitoring demonstrates no significant arrhythmias. The patient does have a history of atrial tachycardia on pacemaker check. Suspect this is the likely explanation for his s ymptoms. Will interrogate pacemaker as noted above. 7. Preoperative evaluation prior to carotid endarterectomy. The patient does have known coronary ar jhony disease. He is status post bypass grafting surgery in 2001. Stress testing in September of 2018 demonstrated no evidence of ischemia or infarction, placing him at low cardiovascular risk. Since t his time, the patient has remained moderately active and denies symptoms of angina. I think it would be reasonable to proceed with surgery at this time. /[id number]/MODL
--- NOTE | 2018-07-17 11:52 | NEUROPROG ---
Assessment: 1. RIGHT-SIDED AMAUROSIS FUGAX 2. RIGHT CAROTID ARTERY DISEASE, 70% STENOSIS 3. VERTEBRAL ARTERY STENOSIS, 90% I appreciate general surgery and Cardiology evaluation of this patient. He is on IV heparin and will see Dr. Navarro tomorrow morning for evaluation for right carotid endarterectomy. Cardiology will interrogate his pacemaker for occult paroxysmal atrial fibrillation. Although atrial fibrillation with on likely be the cause of this event, it would indicate long-term oral anticoagulation if present. Therefore, once he has completed surgery and he is cleared by Dr. Navarro, he should restart anti-platelet therapy or, if indicated, oral anticoagulation. Finally, per his daughter Nikki, he has had his vertebral artery stenosis evaluated previously in [place] by interventional neurovascular specialist. The recommendation at that time was anti-platelet therapy rather than stenting according to the patient and his family. This certainly could be re-evaluated by the group if the patient wishes. We change service tomorrow. We will continue to follow up p.r.n. Please do not hesitate to call the neurology service (Dr Cortez) if there any further questions or changes in neurologic status with this very pleasant patient Otherwise, I will plan on seeing him as an outpatient . Subjective: No new symptoms Objective: Vital Signs Temp Pulse Resp BP Pulse Ox 36.6 C 65 11 L 141/78 H 95 07/17/18 11:35 07/17/18 11:35 07/17/18 11:35 07/17/18 11:35 07/17/18 11:35 07/16/18 07/17/18 07/18/18 05:59 05:59 05:59 Intake Total 1000 Balance 1000 PT 13.6 SEC (12.0-15.0) 07/16/18 13:16 INR 1.02 (0.83-1.16) 07/16/18 13:16 35 total minutes floor time reviewing interim records and consultations. This included direct counseling and coordination of care. Awake and alert Allergies/Adverse Reactions: No Known Allergies Allergy (Verified 01/24/17 09:25)
[2018-07-17] MEDS: HEPARIN/DEXTROSE 500 ML IV SCH (12:44)
[2018-07-18] MEDS: PRESERVISION AREDS2 FORMULA EYE VIT 1 EACH PO SCH (09:47)
[2018-07-18] MEDS: CHOLECALCIFEROL VIT D3 1,000 UNITS TAB PO SCH (09:47)
[2018-07-18] MEDS: DONEPEZIL HCL 5 MG TAB PO SCH (09:47)
[2018-07-18] MEDS: CYANO/VITAMIN B12 1000 MCG TAB PO SCH (09:47)
[2018-07-18] MEDS: PRAVASTATIN SODIUM 20 MG TAB PO SCH (09:48)
--- NOTE | 2018-07-18 09:48 | HOSPPROG ---
Hospitalist Progress Note Assessment/Plan: 87 yo M w/ hx of CAD, HTN, and CHB s/p PPM presents with transient, partial vision loss of his R eye. Evaluated the patient alongside with Dr Mendiola. I have reviewed his imaging. * right eye amaurosis fugax -patient has a 70% stenosis of ANJELICA-place on heparin gtt now -Dr Navarro evaluated -hold asa and Plavix for poss surgery *carotid stenosis -70% stenosis on r side, will likely need a CEA -90 percent stenosis of left vertebral artery -has had this evaluated in the past-recommendation is anti-platelet therapy *CHB s/p pacer -pacer was interrogated -spoke w cardiology to further evaluate the report -evaluated telemetry and he is in a V paced rhythm *CAD -s/p CABG -appreciate Dr Cervantes seeing Ady *elevated minimally A1c of 6.7 *htn -on clonidine *dementia -resumed home meds *plan: continue heparin gtt, likely surgery tomorrow Subjective: Ady has no complaints. Objective: Vital Signs Temp Pulse Resp BP Pulse Ox 36.7 C 64 14 127/75 H 96 07/18/18 08:00 07/18/18 08:00 07/18/18 08:00 07/18/18 08:00 07/18/18 08:00 Laboratory Results 07/18/18 05:15 07/17/18 07/18/18 07/19/18 05:59 05:59 05:59 Intake Total 1000 650 Output Total 650 Balance 1000 0 PT 13.6 SEC (12.0-15.0) 07/16/18 13:16 INR 1.02 (0.83-1.16) 07/16/18 13:16 - Physical Exam Constitutional: no apparent distress, appears nourished, not in pain Ears, Nose, Mouth, Throat: hearing normal Cardiovascular: regular rate and rhythym Respiratory: no respiratory distress Skin: warm Musculoskeletal: full muscle strength Psychiatric: interacting appropriately, poor memory ICD10 Worksheet Patient Problems: Problems Problem Status Onset Amaurosis fugax of right eye Acute Right retinal embolus Acute Right sided weakness Acute TIA (transient ischemic attack) Acute CAD (coronary artery disease) of artery bypass graft Acute Cardiac pacemaker in situ Acute Heart block AV complete Acute
--- NOTE | 2018-07-18 10:02 | GCON ---
CHIEF COMPLAINT: Vision loss in right eye. HISTORY OF PRESENT ILLNESS: This is a pleasant 87-year-old male with a history of coronary artery disease, hypertension, and sick sinus syndrome, who presented to the emergency department on 07/15/2018 with a complaint of sudden loss of vision in his right eye. The patient reports that he was in his usual state of health when he noted the abrupt onset of a black curtain moving in front of his visual field after a round of golfing. He then presented to his center machine operator, who recommended that he go to the emergency room for further evaluation. In the emergency room, he was diagnosed with amaurosis fugax and found to have a 70% stenosis of his right internal carotid artery on CT scan. We were asked to see this patient for a possible right carotid endarterectomy. He has been on a heparin drip since the day of admission. At this time, he reports that his visual symptoms have completely improved. He denies headaches and any other stroke-like symptom. PAST MEDICAL HISTORY: Coronary artery disease, sick sinus syndrome, hypertension, hyperlipidemia, history of TIA, short-term memory loss. MEDICATIONS: Amlodipine, cholecalciferol (vitamin D3), clonidine, Aricept, vitamin B12, Plavix. PAST SURGICAL HISTORY: Coronary artery bypass graft, pacemaker. FAMILY HISTORY: Coronary artery disease, hypertension. SOCIAL HISTORY: The patient is . He is a former smoker. REVIEW OF SYSTEMS: Ten-point review of systems was performed and is negative, except for what is stated in the HPI. PHYSICAL EXAM: GENERAL: This is a pleasant 87-year-old male resting comfortably in the hospital bed, in no acute distress. HEENT: Normocephalic, atraumatic. No gross hearing deficits. Mucous membranes are moist. No carotid bruits bilaterally CARDIAC: Regular rate and rhythm. No clicks, murmurs, or rubs. CHEST: Clear to auscultation bilaterally. No increased work of breathing. ABDOMEN: Soft, nontender, nondistended. SKIN: Warm and dry. MUSCULOSKELETAL: Moves all extremities equally. NEUROLOGIC: He is alert and oriented x3. Cranial nerves 2-12 are grossly intact. PSYCHIATRIC: Appropriate mood and affect. IMPRESSION AND PLAN: This is an 87-year-old male with a significant cardiac history, who presented to the emergency room with amaurosis fugax. He was found to have 70% stenosis in his right internal carotid artery on CT scan. He was seen by Dr. Navarro and myself today. We discussed all risks and options, including surgery. Risks of surgery include, but are not limited to infection, bleeding, heart attack, stroke, and . Patient understands and will discuss surgery with his son. Most likely, we will plan for surgery tomorrow. Continue to hold aspirin and Plavix at this time. He can continue with heparin drip until the time of surgery. /[id number]/MODL MTDD
[2018-07-18] MEDS: HEPARIN/DEXTROSE 500 ML IV SCH (12:42)
--- NOTE | 2018-07-18 18:33 | SOAPPROG ---
JOSE Progress Note Assessment/Plan: Assessment: SEEN WITH ANDREINA MORENO/ REFER TO HER DICTATION RISKS AND OPTIONS FULLY DISCUSSED AND HE WISHES TO PROCEED WITH SURGERY 87 MALE WITH CRITICAL RT CAROTID STENOSIS AND RECENT TIA Plan:RT CEA IF HE WISHES/ CONTINUE HEPARIN DRIP 07/18/18 18:31 Objective: Vital Signs Temp Pulse Resp BP Pulse Ox 36.4 C 66 20 164/80 H 98 07/18/18 16:00 07/18/18 16:00 07/18/18 16:00 07/18/18 16:00 07/18/18 16:00 Laboratory Results 07/18/18 05:15 07/17/18 07/18/18 07/19/18 05:59 05:59 05:59 Intake Total 1000 650 Output Total 650 250 Balance 1000 0 -250 PT 13.6 SEC (12.0-15.0) 07/16/18 13:16 INR 1.02 (0.83-1.16) 07/16/18 13:16 ICD10 Worksheet Patient Problems: Problems Problem Status Onset Amaurosis fugax of right eye Acute Right retinal embolus Acute Right sided weakness Acute TIA (transient ischemic attack) Acute CAD (coronary artery disease) of artery bypass graft Acute Cardiac pacemaker in situ Acute Heart block AV complete Acute
[2018-07-19] MEDS ORDERED: ceFAZolin 2 GM/DEXTROSE 100 ML IV ONE (06:00)
--- NOTE | 2018-07-19 08:28 | HOSPPROG ---
Hospitalist Progress Note Assessment/Plan: 87 yo M w/ hx of CAD, HTN, and CHB s/p PPM presents with transient, partial vision loss of his R eye. Evaluated the patient alongside with Dr Mendiola. I have reviewed his imaging. * right eye amaurosis fugax -patient has a 70% stenosis of ANJELICA-on heparin gtt -Dr Navarro evaluated, CEA today -hold asa and Plavix *carotid stenosis -70% stenosis on r side, will likely need a CEA -90 percent stenosis of left vertebral artery -has had this evaluated in the past-recommendation is anti-platelet therapy *CHB s/p pacer -pacer was interrogated -spoke w cardiology and report indicates <1% atrial tach or afib -evaluated telemetry and he is in a V paced rhythm *CAD -s/p CABG -appreciate Dr Cervantes seeing Ady *elevated minimally A1c of 6.7 *htn -on clonidine *dementia -resumed home meds *plan: OR today, updated patient and family that Ady will be in the ICU tomorrow. Subjective: Ady has no complaints. Objective: Vital Signs Temp Pulse Resp BP Pulse Ox 36.6 C 62 14 133/68 H 95 07/19/18 07:56 07/19/18 07:56 07/19/18 07:56 07/19/18 07:56 07/19/18 07:56 Laboratory Results 07/18/18 05:15 07/18/18 07/19/18 07/20/18 05:59 05:59 05:59 Intake Total 650 1028 252 Output Total 650 550 Balance 0 478 252 PT 13.6 SEC (12.0-15.0) 07/16/18 13:16 INR 1.02 (0.83-1.16) 07/16/18 13:16 - Physical Exam Constitutional: no apparent distress, appears nourished, not in pain Ears, Nose, Mouth, Throat: hearing normal Cardiovascular: regular rate and rhythym Respiratory: no respiratory distress Skin: warm Musculoskeletal: full muscle strength Neurologic: sensation intact bilaterally, No weakness, No numbness, No pronator drift Psychiatric: interacting appropriately, poor memory ICD10 Worksheet Patient Problems: Problems Problem Status Onset Amaurosis fugax of right eye Acute Right retinal embolus Acute Right sided weakness Acute TIA (transient ischemic attack) Acute CAD (coronary artery disease) of artery bypass graft Acute Cardiac pacemaker in situ Acute Heart block AV complete Acute
[2018-07-19] MEDS ORDERED: NS 1,000 ML IV SCH (08:30)
[2018-07-19] MEDS: CYANO/VITAMIN B12 1000 MCG TAB PO SCH (09:20)
[2018-07-19] MEDS: PRESERVISION AREDS2 FORMULA EYE VIT 1 EACH PO SCH (09:20)
[2018-07-19] MEDS: CHOLECALCIFEROL VIT D3 1,000 UNITS TAB PO SCH (09:20)
[2018-07-19] MEDS: PRAVASTATIN SODIUM 20 MG TAB PO SCH (09:20)
[2018-07-19] MEDS: DONEPEZIL HCL 5 MG TAB PO SCH (09:23)
--- NOTE | 2018-07-19 11:36 | ASMTCMCOM ---
FLORIAN Note CM Note Notes: Note not saved in [employer] yesterday by FLORIAN Chen Lino: Patient likely to go for surgery tomorrow. D/C plan TBD. Date Signed: 07/19/2018 11:36 AM Electronically Signed By:DEREK Gibbs
[2018-07-19] MEDS ORDERED: LR 1,000 ML IV ONE (12:49)
[2018-07-19] MEDS: HEPARIN/DEXTROSE 500 ML IV SCH (13:15)
[2018-07-19] MEDS ORDERED: BUPIVACAINE 0.5% 30 ML SDV ONE (13:31)
[2018-07-19] MEDS ORDERED: PROTAMINE SULFATE 50 MG/5 ML VIAL IVP ONE (13:31)
[2018-07-19] MEDS ORDERED: THROMBIN (BOVINE) 20,000 UNIT SPRAY TP ONE (13:31)
[2018-07-19] MEDS ORDERED: CEFAZOLIN 2 GM/DEXTROSE/100 ML BAG IV ONE (13:36)
--- NOTE | 2018-07-19 13:56 | PDANEPAE ---
ANE History of Present Illness Right carotid stenosis for CEA ANE Past Medical History - Cardiovascular History Hx Hypertension: Yes Hx Arrhythmias: Yes Hx Chest Pain: No Hx Coronary Artery / Peripheral Vascular Disease: Yes - Pulmonary History Hx COPD: No Hx Asthma/Reactive Airway Disease: No Hx Recent Upper Respiratory Infection: No Hx Oxygen in Use at Home: No Hx Sleep Apnea: No Sleep Apnea Screening Result - Last Documented: Negative - Endocrine History Hx Diabetes: No Obesity: no - Chronic Pain History Chronic Pain: No ANE Review of Systems Review of systems is: negative Review of Systems: - Exercise capacity Exercise capacity: >=4 METS ANE Patient History - Allergies Allergies/Adverse Reactions: No Known Allergies Allergy (Verified 01/24/17 09:25) - Home Medications Home medications: home medication list seen and reviewed Home Medications: Clopidogrel Bisulfate [Plavix (*)] 75 mg PO HS 07/15/18 [Last Taken Unknown] amLODIPine BESYLATE [Norvasc 10 mg (*)] 10 mg PO DAILY 07/15/18 [Last Taken Unknown] Aspirin [Aspirin 81mg (*)] 81 mg PO DAILY 07/16/18 [Last Taken Unknown] C/E/Zn/Cu/OM3/DHA/EPA/LUT/ZEAX [Preservision Areds 2 Softgel] 1 each PO DAILY [Last Taken Unknown] Cholecalciferol Vit D3 [Vitamin D3 (*)] 2,000 units PO DAILY 07/16/18 [Last Taken Unknown] Cyanocobalamin [Vitamin B12 (*)] 1,000 mcg PO DAILY 07/16/18 [Last Taken Unknown ] Donepezil HCl [Aricept] 10 mg PO DAILY 07/16/18 [Last Taken Unknown] Herbals/Supplements -Info Only 1 ea PO DAILY 07/16/18 [Last Taken Unknown] Pravastatin Sodium 20 mg PO DAILY 07/16/18 [Last Taken Unknown] clonIDINE [Catapres (*)] 0.1 mg PO BID 07/16/18 [Last Taken Unknown] - NPO status NPO Since - Liquids (Date): 07/19/18 NPO Since - Liquids (Time): 00:00 NPO Since - Solids (Date): 07/19/18 NPO Since - Solids (Time): 00:00 - Anes Hx Anes Hx: no prior problems - Smoking Hx Smoking Status: Former smoker ANE Labs/Vital Signs - Labs Result Diagrams: 07/18/18 05:15 07/16/18 05:03 - Vital Signs Blood Pressure: 104/67 Heart Rate: 64 Respiratory Rate: 16 O2 Sat (%): 92 Height: 177.8 cm Weight: 70.4 kg ANE Physical Exam - Airway Neck exam: FROM Mallampati Score: Class 2 Mouth exam: poor dentition - Pulmonary Pulmonary: no respiratory distress - Cardiovascular Cardiovascular: regular rate and rhythym - ASA Status ASA Status: III ANE Anesthesia Plan Anesthesia Plan: general endotracheal anesthesia Lines/Monitors: arterial line
[2018-07-19] MEDS ORDERED: REMIFENTANIL HCL 1 MG VIAL ONE (14:02)
[2018-07-19] MEDS ORDERED: PROPOFOL/EMULSION 500 MG/50 ML BOTTLE IV ONE (14:02)
[2018-07-19] MEDS ORDERED: fentaNYL 100 MCG/2 ML INJ ONE (14:02)
[2018-07-19] MEDS ORDERED: niCARdipine/NACL/200 ML BAG IV ONE (14:03)
[2018-07-19] MEDS ORDERED: HEPARIN 10,000 UNIT/10 ML MDV (1,000 UNIT/ML) ONE (14:10)
[2018-07-19] MEDS ORDERED: PHENYLEPHRINE HCL 100 MCG/ML SYR ONE (14:27)
--- NOTE | 2018-07-19 15:19 | POSTANESTH ---
Post Anesthetic Evaluation Cardiovascular Status: Normal, Stable Respiratory Status: Normal, Stable Level of Consciousness/Mental Status: Can Participate in Eval, Alert and Oriented Pain Control: Adequate, Prn Tx Ordered Nausea/Vomiting Control: Adequate, Prn Tx Ordered Complications Possibly Related to Anesthesia: None Noted
[2018-07-19] MEDS ORDERED: ONDANSETRON 4 MG/2 ML VIAL ONE (16:03)
[2018-07-19] MEDS ORDERED: SUGAMMADEX SODIUM 200 MG/2 ML VIAL IVP ONE (16:07)
--- NOTE | 2018-07-19 16:13 | POSTOPPROG ---
Post Op Note Date of Operation: 07/19/18 Surgeon: Matt Navarro Microphone Operator: Ashley Watt Anesthesiologist: Adrian Kenyon Anesthesia: GET(General Endotracheal) Pre-op Diagnosis: critical carotid stenosis c amaurosis fugax Post-op Diagnosis: same Procedure: R CEA c EEG monitoring, shunt, and graft patch closure; cervical LN bx Findings: no EEG changes, weak back flow, focal calcified plaque, tortuous ICA Inf/Abcess present in the surg proc area at time of surgery?: No Complications: none Specimen(s): plaque and cervical LN to pathology
[2018-07-19] MEDS ORDERED: ENALAPRILAT DIHYDRATE 1.25 MG/ML VIAL IVP PRN (16:14)
[2018-07-20] MEDS ORDERED: MELATONIN 3 MG TAB PO SCH (01:15)
[2018-07-20 05:10] LABS: PLATELET COUNT 265 10^3/uL (150-400)
[2018-07-20] MEDS: PRESERVISION AREDS2 FORMULA EYE VIT 1 EACH PO SCH (09:46)
[2018-07-20] MEDS: DONEPEZIL HCL 5 MG TAB PO SCH (09:46)
[2018-07-20] MEDS: PRAVASTATIN SODIUM 20 MG TAB PO SCH (09:47)
[2018-07-20] MEDS: CYANO/VITAMIN B12 1000 MCG TAB PO SCH (09:47)
[2018-07-20] MEDS: CHOLECALCIFEROL VIT D3 1,000 UNITS TAB PO SCH (09:47)
--- NOTE | 2018-07-20 09:54 | SOAPPROG ---
JOSE Progress Note Assessment/Plan: Assessment: 87 y/o M s/p R CEA for carotid stenosis and amaurosis fungax POD #1 S: Doing well. Pain well controlled. No complaints. O: Alert Afebrile No increased WOB Neck incision cdi CN 2-12 grossly intact Plan: ok to restart Plavix and asa today. Can go from surgery standpoint. 07/20/18 09:50 Objective: Vital Signs Temp Pulse Resp BP Pulse Ox 36.3 C 64 18 104/52 L 95 07/20/18 08:00 07/20/18 08:00 07/20/18 08:00 07/20/18 09:47 07/20/18 08:00 Laboratory Results 07/20/18 04:30 07/20/18 04:30 07/19/18 07/20/18 07/21/18 05:59 05:59 05:59 Intake Total 1028 3011 Output Total 550 575 Balance 478 2436 PT 13.6 SEC (12.0-15.0) 07/16/18 13:16 INR 1.02 (0.83-1.16) 07/16/18 13:16 ICD10 Worksheet Patient Problems: Problems Problem Status Onset Amaurosis fugax of right eye Acute Right retinal embolus Acute Right sided weakness Acute TIA (transient ischemic attack) Acute CAD (coronary artery disease) of artery bypass graft Acute Cardiac pacemaker in situ Acute Heart block AV complete Acute
[2018-07-20] MEDS ORDERED: ASPIRIN 81 MG CHEWABLE TAB PO SCH (11:15)
[2018-07-20] MEDS ORDERED: CLOPIDOGREL BISULFATE 75 MG TAB PO SCH (11:15)
[2018-07-20 12:47] VITALS: BP 111/51
--- NOTE | 2018-07-20 13:40 | PDDCSUM ---
Discharge Summary Discharge Summary: Date of Admission: 07/16/2018 Date of Discharge: 07/20/2018 Disposition: Back to [facility] with home PT/SIMONIZER/RN Consultants: neurology, general surgery Procedures/Studies: right carotid endarterectomy, CTA head/neck, TTE Discharge Diagnoses: 1. Right focal vision loss (amaurosis fugax) secondary to 2. 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 Embolism from severe right carotid artery stenosis 4. Chronic severe left vertebral artery stenosis 5. Complete heart block s/p PPM 6. CAD s/p CABG 7. Mild cognitive impairment 8. HTN 9. Borderline diabetes Brief Hospital Course: 87 yo M w/ hx of CAD, HTN, mild cognitive impairment, and CHB s/p PPM presented with transient, partial vision loss of his R eye who was found to have 70% stenosis of R carotid artery. Underwent carotid endarterectomy on 07/19 and tolerated procedure well. Partial focal right vision loss had improved but not resolved at time of discharge. His aspirin and clopidogrel were resumed prior to discharge (he was on prior to admission for coronary disease); he is on a statin as well. His pacemaker was interrogated by cardiology which showed <1% atrial tachycardia/afib; they did not recommend systemic anticoagulation based on these findings. Of note, he has known 90% left vertebral artery stenosis; this has been evaluated previously by physician in [place] who recommends anti- platelet therapy as he is doing. With regards to his chronic medical problems, there were no changes made to his medications. He was discharged back to [facility] (where he has been living) with home PT, SIMONIZER, and RN services. Medications: Please refer to EMR for complete list. No changes were made during this hospitalization. Follow Up Plan: 1. Post-surgical instructions/precautions were given to patient 2. Follow up with surgery service for incision check 3. Follow up left cervical LN biopsy pathology Physical Exam: Vitals reviewed, stable and normotensive. Alert and oriented. RRR without murmur on cardiac exam. Lungs clear. Abdomen soft. No lower extremity edema. Right neck incision site with steri strips in place, clean/dry/ intact. Full strength and sensation to light touch intact throughout. PERRL, EOMI. Patient reports improved focal area of vision loss in right eye since admission.
--- NOTE | 2018-07-20 14:55 | HOSPPROG ---
Hospitalist Progress Note Assessment/Plan: 87 yo M w/ hx of CAD, HTN, MCI, and CHB s/p PPM presents with transient, partial vision loss of his R eye. This is my first encounter with patient. I have reviewed prior imaging. #Right eye amaurosis fugax: Sxs improving. Due to probably right retinal artery infarct from carotid artery embolism. - PT/[place] #Right carotid stenosis: 70%. S/p CEA on 07/19 - Restart aspirin and plavix today, already on statin - Off heparin gtt #Severe left vertebral artery stenosis: Eval'd in [place], plan for management with anti-platelet therapy as above. #CHB s/p pacer: Interrogated by cardiology and report indicates <1% atrial tach or afib. No indication for systemic anticoagulation. Remains in v-paced rhythm on telemetry. #CAD s/p CABG: On DAPT and statin as above #HTN: Continue clonidine. #Cognitive impairment: Continue home meds #Elevated A1c: BG ok Diet: regular VTE ppx: SCDs Code: full Dispo: Continue admission, unsafe to discharge as do not have formal therapy service recommendations. Will place order to transfer to floor. Subjective: Doing really well this morning. Vision in right eye improved but still has small defect. Minimal pain in neck. No headache. Objective: Vital Signs Temp Pulse Resp BP Pulse Ox 36.3 C 64 16 111/51 L 98 07/20/18 08:00 07/20/18 12:46 07/20/18 12:46 07/20/18 12:46 07/20/18 12:46 Laboratory Results 07/20/18 04:30 07/20/18 04:30 07/19/18 07/20/18 07/21/18 05:59 05:59 05:59 Intake Total 1028 3011 650 Output Total 550 575 Balance 478 2606 650 PT 13.6 SEC (12.0-15.0) 07/16/18 13:16 INR 1.02 (0.83-1.16) 07/16/18 13:16 - Physical Exam Constitutional: no apparent distress, appears nourished, not in pain Eyes: PERRL, anicteric sclera, EOMI Ears, Nose, Mouth, Throat: moist mucous membranes, hearing normal, ears appear normal, no oral mucosal ulcers, other (steri strips over right neck incision without drainage) Cardiovascular: regular rate and rhythym, no murmur, rub, or gallop Respiratory: no respiratory distress, no rales or rhonchi, clear to auscultation Gastrointestinal: normoactive bowel sounds, soft, non-tender abdomen, no palpable masses Skin: no rashes or abrasions, no fluctuance, no induration Neurologic: AAOx3, sensation intact bilaterally Psychiatric: interacting appropriately, not anxious, not encephalopathic, thought process linear ICD10 Worksheet Patient Problems: Problems Problem Status Onset Amaurosis fugax of right eye Acute Right retinal embolus Acute Right sided weakness Acute TIA (transient ischemic attack) Acute CAD (coronary artery disease) of artery bypass graft Acute Cardiac pacemaker in situ Acute Heart block AV complete Acute
--- NOTE | 2018-07-20 15:30 | PDIAF ---
- Diagnosis Code Status: Full Code - Medication Management Discharge Medications: Medications to Continue on Transfer Clopidogrel Bisulfate [Plavix (*)] 75 mg PO HS 07/15/18 [Last Taken Unknown] amLODIPine BESYLATE [Norvasc 10 mg (*)] 10 mg PO DAILY 07/15/18 [Last Taken Unknown] Aspirin [Aspirin 81mg (*)] 81 mg PO DAILY 07/16/18 [Last Taken Unknown] C/E/Zn/Cu/OM3/DHA/EPA/LUT/ZEAX [Preservision Areds 2 Softgel] 1 each PO DAILY [Last Taken Unknown] Cholecalciferol Vit D3 [Vitamin D3 (*)] 2,000 units PO DAILY 07/16/18 [Last Taken Unknown] Cyanocobalamin [Vitamin B12 (*)] 1,000 mcg PO DAILY 07/16/18 [Last Taken Unknown ] Donepezil HCl [Aricept] 10 mg PO DAILY 07/16/18 [Last Taken Unknown] Herbals/Supplements -Info Only 1 ea PO DAILY 07/16/18 [Last Taken Unknown] Pravastatin Sodium 20 mg PO DAILY 07/16/18 [Last Taken Unknown] clonIDINE [Catapres (*)] 0.1 mg PO BID 07/16/18 [Last Taken Unknown] Discharge Medications: Refer to the Discharge Home Medication list for PRN reason. - Orders Services needed: Home Care, Registered Nurse, Physical Therapy, Speech Language Pathologist Home Care Face to Face: I certify that this patient was under my care and that I had the required [id number] encounter meeting the encounter requirements on the discharge day. My findings support the fact that the patient is homebound as defined in Home Care Face to Face Continued: CMS Chapter 7 Medicare Benefits Manual 30.1.1 , The condition of the patient is such that there exists a normal inability to leave home and consequently, leaving home would require a considerable and taxing effort. Additional Instructions: You should continue taking your medications as prescribed, we have not made any changes. Here are instructions for post-surgical care: 1. Avoid lifting anything that would make your strain (generally over 5-10 pounds) for 2 weeks. 2. Avoid positions where your head is below your waist (ie. bending over to tie shoes) for [address] until you follow up with the surgeon. 4. You may shower and take baths as usual. But do not soak the incision for 2 weeks. 5. We encourage light exercise such as walking, however, would avoid strenuous exercise until you follow up with the surgeon. 6. Leave steri strips/tape on for a week or until it falls off. 7. Wash the area around the incision daily with water and mild soap and pat dry. Do not apply too much pressure to the area. 8. Please call for help or come to the emergency department if you experience sudden worsening vision changes, confusion, severe headache that is different from past headaches. - Follow Up Care Current Providers and Referrals: Matt Navarro MD [Medical Doctor] - Gus Barnard [Primary Care Provider] - As per Instructions
--- NOTE | 2018-07-20 18:26 | ASMTCMCOM ---
CM Note CM Note Notes: Patient did go for surgery yesterday and is doing well. [employer] CREWMEMBER to meet with patient when he is able. Patient most likely will return to [facility] at discharge. CM will follow. Date Signed: 07/20/2018 12:36 PM Electronically Signed By:Jessika Huynh LCSW
--- NOTE | 2018-07-20 18:36 | GOP ---
DATE OF OPERATION: 07/19/2018 SURGEON: Matt Navarro MD LARRIMAN: Ashley Watt, RADHA. ANESTHESIOLOGIST: Dr. Kenyon. PREOPERATIVE DIAGNOSIS: Transient ischemic attack and critical right carotid stenosis. POSTOPERATIVE DIAGNOSIS: Transient ischemic attack and critical right carotid stenosis, plus torturo us carotid artery. PROCEDURE PERFORMED: Right carotid endarterectomy with EEG monitoring and patch angioplasty. FINDINGS: The patient was found to have a high-grade stenosis at the origin of the internal carotid from a calcified plaque. In addition, he had open arteries but very tortuous internal carotid artery . DESCRIPTION OF PROCEDURE: The patient was taken to the operating room where he received satisfactory general endotracheal anesthesia. He was placed in supine position, prepped and draped in the usual sterile fashion. He was systemically heparinized prior to the induction of anesthesia. The incision was made along the anterior border of the sternocleidomastoid muscle. Dissection was carried down t hrough the platysma and subcutaneous tissue and then through the superficial fascia. The common [place] tid, internal carotid, and external carotid arteries were all dissected free and controlled with vess el loops as noted above. There was significant tortuosity of the internal carotid, which was partial ly straightened out. After adequate exposure was achieved, additional heparin was given and after ad equate circulation time, the vessels were cross clamped with the vessel loops. An incision was made in the common carotid artery, extended up the internal carotid artery. Poor backflow was present fro m the internal carotid artery, although there were no EEG changes. A shunt was placed without diffic ulty. An endarterectomy was then completed with a good feathered end. All debris was washed out and removed. The arteriotomy was then closed with a patch angioplasty with Hemashield graft and 7-0 Pro diana suture. The shunt was removed and the suture line was completed. Flow was first established th rough the external carotid then back through the internal carotid. Hemostasis was assured. Heparin was reversed with protamine. The wound was irrigated and sprayed with some topical thrombin and clos ed in layers with 3-0 Vicryl for the fascia, 3-0 Vicryl for the platysma and subcutaneous tissue, and a 4-0 Monocryl subcuticular stitch for the skin. All layers infiltrated with 0.5% Marcaine. Tolera seth the procedure well. No complications. Taken to the recovery room in good condition. /[id number]/MODL
--- NOTE | 2018-07-20 19:50 | ASDISCHSUM ---
Discharge Information Plan Status:Home with Home Health Medically Cleared to Leave:07/20/2018 Discharge Date:07/20/2018 04:30 PM D/C Disposition:Home Health Service [facility] D/C Disposition:Home, Routine, Self-Care Projected Discharge Date:07/20/2018 11:00 AM Transportation at D/C:Family Discharge Delay Reason: Follow-Up Date:07/20/2018 11:00 AM Discharge Slot:2 - 12:01 pm - 18:00 pm Final Diagnosis:CAD Placement Information Referral Type:*Home Health Care Services Referral ID:[id number] Provider Name:[facility] Address 1:[address] Address 2: City:[place] Selection Factors: State:[place] Patient Contact Information Contact Name:SUSSY Relationship:Son Address: Work Phone: City: [facility] Phone: State/Zip Code: Email: Financial Information Financial Class:Medicare Primary Plan Desc:MEDICARE INPATIENT Primary Plan Number:[id number] Secondary Plan Desc:AARP/MDR SUPPLEMENT Secondary Plan Number:[id number] Assessment Information [facility] CM Progress Note CM Note CM Note Notes: Pt in for TIA after loss of vision which has resolved. Neurology consulting. Pt resides at [facility], has family support. WEAVING INSPECTOR rec HHC, no OT/PT ordered. Spoke with pt and family about HHC, they want to think about it. CM to follow. D/c plan of care: return to [facility] with C WEAVING INSPECTOR Date Signed: 07/16/2018 03:13 PM Electronically Signed By:DEREK Gibbs LACE LACE Acuity / Level of Answers: Yes Care: Did the patient have an inpatient admission? Comorbidities - select Answers: Cerebrovascular disease all that apply (CVA, TIA, aneurysms, vasc ular dementia) Coronary Artery Disease # of Emergency department Answers: 1-2 visits in the last 6 months Score: 7 Date Signed: 07/16/2018 03:49 PM Electronically Signed By:DEREK Gibbs TAVO FLORIAN Progress Note CM Note CM Note Notes: Note not saved in [employer] yesterday by FLORIAN Huynh: Patient likely to go for surgery tomorrow. D/C plan TBD. Date Signed: 07/19/2018 11:36 AM Electronically Signed By:DEREK Gibbs YASMINE DU Progress Note CM Note CM Note Notes: Patient did go for surgery yesterday and is doing well. WEAVING INSPECTOR to meet with patient when he is able. Patient most likely will return to [facility] at discharge. CM will follow. Date Signed: 07/20/2018 12:36 PM Electronically Signed By:Jessika Huynh LCSW Case Management Discharge Plan Note Case Management Discharge Discharge Order Complete? Answers: Yes Patient to Obtain Answers: Other Notes: [facility] Medications Transportation Arranged Answers: Family/Friends Faxed Final Orders Answers: Yes Notes: [facility] Agency/Facility Transfer Answers: Yes Notes: [facility] Report Printed & Faxed to Receiving Agency Family Notified Answers: Yes Notes: Aaron, daughter in law Discharge Comments Notes: Patient d/c'ing home to [facility] with [facility] services in place. Patient to get nursing, PT and Dewaterer Operator.Daughter in law Aaron transported patient back home.Referral and discharge summaries Allscripted to [facility]. No further needs. Date Signed: 07/20/2018 04:40 PM Electronically Signed By:Jessika Huynh LCSW Intervention Information
--- NOTE | 2018-07-20 19:50 | ASMTDCNOTE ---
Case Management Discharge Discharge Order Complete? Answers: Yes Patient to Obtain Answers: Other Notes: [facility] Medications Transportation Arranged Answers: Family/Friends Faxed Final Orders Answers: Yes Notes: [facility] Agency/Facility Transfer Answers: Yes Notes: [facility] Report Printed & Faxed to Receiving Agency Family Notified Answers: Yes Notes: Aaron, daughter in law Discharge Comments Notes: Patient d/c'ing home to [facility] Living with [facility] services in place. 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 No further needs. Date Signed: 07/20/2018 04:40 PM Electronically Signed By:Jessika Huynh LCSW
== END 2018-07-20 16:30 | disposition home or self-care (01) | DRG 38 ==
LOC: F3N 07-16 00:03 → OBSVTOIN 07-16 13:16 → F2N 07-19 13:34
PROVIDERS: ADMIT Student in an Organized Health Care Education/Training Program; ATTEND Student in an Organized Health Care Education/Training Program
PROC: 03UK0JZ Supplement Right Internal Carotid Artery with Synthetic Substitute, Open Approach (ICD-10-PCS; principal; 2018-07-16)
PROC: 03CK0ZZ Extirpation of Matter from Right Internal Carotid Artery, Open Approach (ICD-10-PCS; principal; 2018-07-16)
DX: I65.21 Occlusion and stenosis of right carotid artery (principal); G31.84 Mild cognitive impairment of uncertain or unknown etiology; I44.2 Atrioventricular block, complete; I25.10 Atherosclerotic heart disease of native coronary artery without angina pectoris; I10 Essential (primary) hypertension; R73.03 Prediabetes; I25.2 Old myocardial infarction; Z95.5 Presence of coronary angioplasty implant and graft; Z95.0 Presence of cardiac pacemaker; Z87.891 Personal history of nicotine dependence; Z79.01 Long term (current) use of anticoagulants
CPT/HCPCS: 84484-PO; 85520-90; 92507-GN; 92523-GN; 97116-GP; 97161-GP; C1768; G0378; G8978-GP-CI; G8979-GP-CI; G8980-GP-CI; G9168-GN-CK; G9169-GN-CJ; G9170-GN-CJ; J0690; J1644; J2370; J2405; J2704; J2720; J3010; Q9967